=== PATIENT | female | born 1995 | race Caucasian/White ===

== ENCOUNTER 2017-03-16 17:34 | Emergency (ER) | payer OTHER ==
[2017-03-16 17:51] VITALS: BP 126/81; PULSE 95; TEMP 98.4; BMI 18.8
[2017-03-16] MEDS ORDERED: KETOROLAC TROMETHAMINE 60 MG/2 ML VIAL IM ONE (18:25)
[2017-03-16] MEDS ORDERED: KETOROLAC TROMETHAMINE 60 MG/2 ML VIAL ONE (19:03)
--- NOTE | 2017-03-16 19:15 | PDOC ---
History of Present Illness - General Chief Complaint: Pain Stated Complaint: PAIN Time Seen by Provider: 03/16/17 17:59 History Source: Patient Exam Limitations: No Limitations - History of Present Illness Initial Comments: 03/16/17 18:45 Patient is a 22-year-old female, no significant medical history currently on no medication presents emergency department for evaluation of "bump" to right knee also intermittent left hip pain. 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 Denies any trauma. Patient also requesting to be evaluated for occasional bruising. None noted Upon arrival. Patient denies any bleeding, no bleeding gums, no excessive bleeding during menses. Patient was seen in the ER of [facility] two days ago. PT, INR drawn, patient reports that she was told they were normal. Was told to follow up with PMD and ortho. Went to work today and told her boss that she had pain. Was told to be evaluated by a doctor which prompted her to come to the ER. Past Medical History: Denies. Allergies: No known allergies Medications: None Family History: Non-contributory Social History: Denies smoking, alcohol use, or IVDU Review of Systems GENERAL/CONSTITUTIONAL: No fever or chills. No weakness. No weight change. HEAD, EYES, EARS, NOSE AND THROAT: No change in vision. No ear pain or discharge. No sore throat. CARDIOVASCULAR: No chest pain or shortness of breath. RESPIRATORY: No cough, wheezing, or hemoptysis. GASTROINTESTINAL: No nausea, vomiting, diarrhea or constipation. No rectal bleeding. GENITOURINARY: No dysuria, frequency, or change in urination. MUSCULOSKELETAL: Right knee raised area to the lateral knee, left hip pain SKIN AND BREASTS: No rash reports easy bruising. NEUROLOGIC: No headache, vertigo, loss of consciousness, or loss of sensation. PSYCHIATRIC: No depression or anxiety. ENDOCRINE: No increased thirst. No abnormal weight change. HEMATOLOGIC/LYMPHATIC: No anemia, easy bleeding, or history of blood clots. ALLERGIC/IMMUNOLOGIC: No hives or skin allergy. No latex allergy. Physical Exam: GENERAL: The patient is awake, alert, and fully oriented, in no acute distress. EYES: Pupils equal, round and reactive to light, extraocular movements intact, sclera anicteric, conjunctiva clear. ENT: Ears normal, nares patent, oropharynx clear without exudates. Moist mucous membranes. No uvula deviation NECK: Normal range of motion, supple without lymphadenopathy, JVD, or masses. LUNGS: Breath sounds equal, clear to auscultation bilaterally. No wheezes, and no crackles. HEART: Regular rate and rhythm, normal S1 and S2 without murmur, rub or gallop. ABDOMEN: Soft, nontender, normoactive bowel sounds. No guarding, no rebound. No masses. No bruising or abrasions MUSCULOSKELETAL: Normal range of motion, no edema. No clubbing or cyanosis. No cords, erythema, or tenderness. No CVA Tenderness with fist palpation, palpable protuberance to the right lateral knee, pain to the left lateral hip no joint tenderness, no spinal point tenderness. NEUROLOGICAL: Cranial nerves II through XII grossly intact. Normal speech, normal gait. SKIN: Warm, Dry, normal turgor, no rashes or lesions noted. No bruising noted Past History - Past Medical History Allergies/Adverse Reactions: Allergies Allergy/AdvReac Type Severity Reaction Status Date / Time No Known Allergies Allergy Verified 03/16/17 17:51 Home Medications: Ambulatory Orders Naproxen [Naprosyn -] 500 mg PO BID #20 tablet 03/16/17 - Suicide/Smoking/Psychosocial Hx Smoking History: Never smoked Hx Alcohol Use: Yes (SOCIAL) Drug/Substance Use Hx: No *Physical Exam - Vital Signs Last Vital Signs Temp Pulse Resp BP Pulse Ox 98.4 F 95 H 20 126/81 100 03/16/17 17:48 03/16/17 17:48 03/16/17 17:48 03/16/17 17:48 03/16/17 17:48 ED Treatment Course - RADIOLOGY Radiology Studies Ordered: Category Date Time Status KNEE 3 POS-RIGHT [RAD] Stat Radiology 03/16/17 18:30 Ordered Medical Decision Making - Medical Decision Making 03/16/17 19:15 A/P: Patient here for evaluation of right knee protuberance, with no erythema edema fluctuance or unsteady joint, left hip pain, and easy bruising however none noted upon arrival. Will perform urine , right knee x-ray Toradol 60 mg IM 1, patient with clinical signs of sciatica. She reports complete resolution of pain after the Toradol injection, x-ray of right knee is negative for acute injury or effusion. Patient states she will have an appointment as per mother with orthopedist tomorrow we'll discharge on anti-inflammatories. I discussed the physical exam findings, ancillary test results and final diagnoses with the patient. I answered all of the patient's questions. The patient was satisfied with the care received and felt comfortable with the discharge plan and treatment plan. The patient will call to arrange follow-up and will return to the Emergency Department with any new, persistent or worsening symptoms. *DC/Admit/Observation/Transfer Diagnosis at time of Disposition: Bruising Knee pain Qualifiers: Chronicity: acute Laterality: right Qualified Code(s): M25.561 - Pain in right knee Hip pain Qualifiers: Laterality: left Qualified Code(s): M25.552 - Pain in left hip - Discharge Dispostion Disposition: HOME Condition at time of disposition: Good Admit: No - Prescriptions Prescriptions: Naproxen [Naprosyn -] 500 mg PO BID #20 tablet - Referrals [place] [facility] [facility] [place] Group] - Patient Instructions Additional Instructions: Recommend follow-up with primary care doctor for evaluation of easy bruising, follow-up with orthopedics for hip and knee pain. - Post Discharge Activity Forms/Work/School Notes: Back to Work
== END 2017-03-16 20:20 | disposition home or self-care (01) ==
LOC: JERFT 17:34
PROC: 3E0233Z Introduction of Anti-inflammatory into Muscle, Percutaneous Approach (ICD-10-PCS; principal; 2017-03-16)
DX: S80.01XA Contusion of right knee, initial encounter (principal); M54.32 Sciatica, left side; X58.XXXA Exposure to other specified factors, initial encounter; Y93.89 Activity, other specified; Y92.89 Other specified places as the place of occurrence of the external cause; Y99.8 Other external cause status
CPT/HCPCS: 73562-TC-RT; 84703; 99281-25